=== PATIENT | male | born 2000 | race Two or more races ===

== ENCOUNTER 2020-12-20 19:02 | Emergency (ER) | payer SELFPAY ==
[~2020-12-20] VITALS: Ht 175.3 cm; Wt 89.0 kg
[2020-12-20 20:48] LABS: BASOPHILS % 0.3 % (0.0-2.0); EOSINOPHILS % 0.7 % (0.0-5.0); HEMATOCRIT. 46.5 % (42.0-52.0); HEMOGLOBIN. 16.2 g/dL (14.0-18.0); LYMPHOCYTES % 23.3 % (20.0-50.0); MEAN CORPUSCULAR HEMOGLOBIN 32.5 pg (28.0-32.0); MEAN CORPUSCULAR VOLUME 93.4 fL (80.0-94.0); MEAN PLATELET VOLUME 8.5 fl (7.4-10.4); MONOCYTES % 6.7 % (2.0-8.0); PLATELET 286 x1000/uL (130-400); RED BLOOD CELL COUNT 4.98 mill/uL (4.7-6.1); RED CELL DISTRIBUTION WIDTH 13.5 % (11.6-14.6)
[2020-12-20 20:50] LABS: CHLORIDE 107 mEq/L (98-107)
[2020-12-20 20:53] LABS: ETHANOL BLOOD 99 mg/dL
[2020-12-21 09:15] VITALS: BP 136/80
== END 2020-12-21 09:15 | disposition home or self-care (01) ==
LOC: ER 19:02
DX: T14.91XA Suicide attempt, initial encounter (principal); F10.129 Alcohol abuse with intoxication, unspecified; F32.9 Major depressive disorder, single episode, unspecified; Y90.4 Blood alcohol level of 80-99 mg/100 ml; X83.8XXA Intentional self-harm by other specified means, initial encounter; Y93.89 Activity, other specified; Y92.9 Unspecified place or not applicable; Z20.822 Contact with and (suspected) exposure to COVID-19
CPT/HCPCS: 36415; 80048; 80307; 80320; 80329; 85025; 87426; 99285; C9803; U0003; U0005; G0480